=== PATIENT | male | born 1940 | race Caucasian/White ===

== ENCOUNTER → 2020-03-31 | Outpatient (CLI) | payer MEDICARE, BC | LOC: RAD 09:00 | DX: K57.30 Diverticulosis of large intestine without perforation or abscess without bleeding (principal); K59.00 Constipation, unspecified; N40.0 Benign prostatic hyperplasia without lower urinary tract symptoms; I70.0 Atherosclerosis of aorta | CPT/HCPCS: Q9967 ==

== ENCOUNTER → 2021-05-20 | Outpatient (CLI) | payer MEDICARE, BC | LOC: RAD 12:50 | DX: J32.2 Chronic ethmoidal sinusitis (principal); J32.0 Chronic maxillary sinusitis ==

== ENCOUNTER → 2021-07-02 | Outpatient (CLI) | payer MEDICARE, BC | LOC: RAD 16:18 | DX: R20.0 Anesthesia of skin (principal) | CPT/HCPCS: A9585 ==

== ENCOUNTER 2021-09-12 12:13 | Observation (INO) | payer MEDICARE, BC ==
[~2021-09-12] VITALS: Ht 172.7 cm; Wt 100.6 kg
[2021-09-12] MEDS ORDERED: ALLOPURINOL300 M1 PO (12:36)
[2021-09-12] MEDS ORDERED: LASIX40 M1 PO (12:37)
[2021-09-12] MEDS ORDERED: COREG12.5 M1 PO (12:37)
[2021-09-12] MEDS ORDERED: HCTZ 25MG25 MG PO (12:38)
[2021-09-12] MEDS ORDERED: LEVOTHYROXINE0.05 MG PO (12:38)
[2021-09-12] MEDS ORDERED: POTASSIUM CHLO20 ME4 PO (12:39)
[2021-09-12] MEDS ORDERED: ROSUVASTATIN CA20 MG PO (12:39)
[2021-09-12] MEDS ORDERED: SOLIFENACIN SUCC5 MG PO (12:40)
[2021-09-12] MEDS ORDERED: ASPIRIN E.C. 8181 MG PO (12:40)
[2021-09-12] MEDS ORDERED: OMEGA 3 1,0001 EACH PO (12:41)
[2021-09-12] MEDS ORDERED: VITAMIN D350 MCG PO (12:41)
[2021-09-12] MEDS ORDERED: VALSARTAN160 M1 PO (12:42)
[2021-09-12 13:04] LABS: BASO # 0.01 K/mm3 (0.02-0.10); EOS # 0.26 K/mm3 (0.04-0.40); HEMATOCRIT 42.8 % (42.0-52.0); LYMPH# 1.19 K/mm3 (1.50-4.00); MEAN CELL VOLUME 90 fl (78-100); MEAN CORPUSCULAR HEMOGLOBIN 30 pg (27-31); MEAN CORPUSCULAR HGB CONC 33 g/dL (33-37); MEAN PLATELET VOLUME 9.9 fl (7.4-10.4); MONO # 0.45 K/mm3 (0.20-0.80); NEU # 3.32 K/mm3 (1.40-6.50); PLATELET COUNT 104 K/mm3 (130-400); RED BLOOD COUNT 4.75 M/mm3 (4.20-5.60); RED CELL DISTRIBUTION WIDTH 15.3 % (11.5-14.5); WHITE BLOOD COUNT 5.2 K/mm3 (4.8-10.8)
[2021-09-12 13:08] LABS: ALBUMIN 3.9 g/dL (3.4-4.8); POTASSIUM 3.7 mmol/L (3.5-5.1)
[2021-09-12 13:09] LABS: CALCIUM 9.9 mg/dL (8.3-10.5)
[2021-09-12 13:10] LABS: TOTAL PROTEIN 7.1 g/dL (6.2-8.1)
[2021-09-12 13:19] VITALS: BP 176/79
[2021-09-12 14:02] LABS: URINE APPEARANCE CLEAR; URINE COLOR LT YELLOW
[2021-09-12 14:03] LABS: URINE BILIRUBIN NEGATIVE (NEGATIVE); URINE BLOOD TRACE (NEGATIVE); URINE GLUCOSE NEGATIVE (NEGATIVE); URINE KETONE NEGATIVE (NEGATIVE); URINE LEUKOCYTE ESTERASE NEGATIVE (NEGATIVE); URINE NITRATE NEGATIVE (NEGATIVE); URINE PROTEIN(semi-quant) NEGATIVE (NEGATIVE); URINE UROBILINOGEN NORMAL (NORMAL); URINE WBC 0-1 /hpf (0-3)
[2021-09-12 16:51] LABS: D-DIMER 0.8 mg/L FEU (0.15-0.50)
[2021-09-12 18:30] VITALS: BP 124/77
[2021-09-12 23:10] VITALS: BP 117/70
[2021-09-13 06:38] VITALS: BP 128/69
[2021-09-13 09:07] VITALS: BP 127/68
[2021-09-13] MEDS ORDERED: Patient's Own Medica PO (12:14)
[2021-09-13] MEDS ORDERED: VALSARTAN160 M1 PO (12:17)
[2021-09-13] MEDS ORDERED: HEALTHYLAX17 GM/Dose PO (12:17)
== END 2021-09-13 13:15 | disposition home or self-care (01) ==
LOC: ED 12:13 → MED/SURG 18:00
PROVIDERS: ADMIT Family Medicine
DX: I10 Essential (primary) hypertension (principal); R77.8 Other specified abnormalities of plasma proteins; R00.1 Bradycardia, unspecified; I25.10 Atherosclerotic heart disease of native coronary artery without angina pectoris
CPT/HCPCS: G0378; J1650

== ENCOUNTER → 2021-10-12 | Outpatient (CLI) | payer MEDICARE, BC ==
[~2021-10-12] MED LIST: ALLOPURINOL300 M1 PO; ASPIRIN E.C. 8181 MG PO; COREG12.5 M1 PO; HCTZ 25MG25 MG PO; HEALTHYLAX17 GM/Dose PO; LASIX40 M1 PO; LEVOTHYROXINE0.05 MG PO; OMEGA 3 1,0001 EACH PO; POTASSIUM CHLO20 ME4 PO; Patient's Own Medica PO; ROSUVASTATIN CA20 MG PO; SOLIFENACIN SUCC5 MG PO; VALSARTAN160 M1 PO; VITAMIN D350 MCG PO
== END ==
LOC: RAD 09:06
DX: R31.9 Hematuria, unspecified (principal); N40.0 Benign prostatic hyperplasia without lower urinary tract symptoms; I70.8 Atherosclerosis of other arteries
CPT/HCPCS: Q9967

== ENCOUNTER → 2021-12-25 | Outpatient (CLI) | payer MEDICARE, BC | LOC: RAD 08:51 | DX: N50.89 Other specified disorders of the male genital organs (principal) ==

== ENCOUNTER → 2024-02-29 | Outpatient (CLI) | payer MEDICARE, BC ==
[~2024-02-29] MED LIST changes: +CARVEDILOL6.25 MG PO; +FLOMAX0.4 MG PO; +VALSARTAN80 MG PO
== END ==
LOC: RAD 12:55
DX: N28.1 Cyst of kidney, acquired (principal); K57.90 Diverticulosis of intestine, part unspecified, without perforation or abscess without bleeding